=== PATIENT | male | born 1970 | race Asian ===

== ENCOUNTER 2022-07-04 17:19 | Emergency (ER) | payer OTHER ==
[~2022-07-04] VITALS: Ht 180.3 cm; Wt 78.5 kg
[2022-07-04 17:23] VITALS: BP_SYST 126
--- NOTE | 2022-07-04 17:55 | NUR ---
patient brought to ER bed 2
--- NOTE | 2022-07-04 18:06 | NUR ---
DR BELLE IN ROOM FOR EXAM.
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
--- NOTE | 2022-07-04 18:48 | NUR ---
at bedside, Pt in NAD.
[2022-07-04] MEDS ORDERED: METH-634 PO (18:52)
[2022-07-04] MEDS ORDERED: IBUP-1971 PO (18:52)
[2022-07-04 19:11] VITALS: BP_SYST 126
--- NOTE | 2022-07-04 19:11 | NUR ---
Patient given written and verbal discharge instructions and verbalizes understanding. ER MD discussed with patient the results and treatment provided. Patient in stable condition. ID arm band removed. Patient educated on pain management and to follow up with PMD. Pain Scale []. Opportunity for questions provided and answered. Medication side effect fact sheet provided.
== END 2022-07-04 19:11 | disposition home or self-care (01) ==
LOC: SED 17:19
DX: R07.89 Other chest pain (principal); M25.511 Pain in right shoulder; R51.9 Headache, unspecified; Z79.899 Other long term (current) drug therapy; V89.2XXA Person injured in unspecified motor-vehicle accident, traffic, initial encounter; Y93.89 Activity, other specified; Y92.89 Other specified places as the place of occurrence of the external cause; Y99.8 Other external cause status
CPT/HCPCS: 71045; 99283